=== PATIENT | female | born 1935 | race Caucasian/White ===

== ENCOUNTER 2017-07-23 18:40 | Inpatient (IN) | payer MEDICAID, MEDICARE, OTHER ==
[~2017-07-23] VITALS: Ht 162.6 cm; Wt 147.0 kg
[2017-07-23 19:26] LABS: Basophils # (auto) 0.1 uL; Eosinophils # (auto) 0.1 uL; Eosinophils % (auto) 1.4 % (0.0-7.0); Hematocrit 41.3 % (36.0-46.0); Hemoglobin 13.7 g/dL (12.2-16.2); Lymphocytes # (auto) 1.3 uL; Lymphocytes % (auto) 14.6 % (10.0-50.0); Mean Corpuscular Hemoglobin 32.4 pg (28.0-32.0); Mean Corpuscular Hgb Conc. 33.2 g/dL (32.0-36.0); Mean Corpuscular Volume 97.6 fL (80.0-100.0); Monocytes # (auto) 0.6 uL; Monocytes % (auto) 6.3 % (0.0-12.0); Neutrophils % (auto) 76.7 % (37.0-80.0); Platelet Count (auto) 421 10^3/uL (140-450); Red Blood Cells 4.23 10^6/uL (4.0-5.20); Red Cell Distribution Width 14.8 % (11.8-14.3); White Blood Cell 9.2 10^3/uL (4.4-10.8)
[2017-07-23 19:43] LABS: Alanine Aminotransferase 19 U/L (13-56); Albumin 3.9 g/dL (3.4-5.0); Anion Gap 9 (5-15); Blood Urea Nitrogen 10 mg/dL (7-18); Carbon Dioxide 26 mmol/L (21-32); Chloride 98 mmol/L (98-107); Glucose 144 mg/dL (74-106); Magnesium 2.2 mg/dL (1.6-2.6); Potassium 3.4 mmol/L (3.5-5.1); Sodium 133 mmol/L (136-145)
[2017-07-23 19:45] LABS: Aspartate Aminotransferase 22 U/L (15-37); BUN/Creatinine Ratio 13.5; Calcium 8.5 mg/dL (8.5-10.1); GFR African American 97 mL/min; GFR Non-African American 80 mL/min
[2017-07-23 19:51] LABS: Alkaline Phosphatase 89 U/L (45-117); Bilirubin, Total 0.7 mg/dL (0.2-1.0); Total Protein 8.7 g/dL (6.4-8.2)
[2017-07-23] MEDS ORDERED: MORPHINE SULFATE 4 MG/ML SYR/VIAL IV ONE (22:30)
[2017-07-23] MEDS ORDERED: SODIUM CHLORIDE 0.9% 1,000 ML IV ONE (22:30)
[2017-07-23] MEDS ORDERED: ONDANSETRON HCL 4 MG/2 ML VIAL IV ONE (22:30)
[2017-07-23 22:44] LABS: INR 1.06 (0.9-1.15); Partial Thromboplastin Time 27.3 sec (22.64-33.71); Prothrombin Time 11.6 sec (9.37-12.3)
[2017-07-23 22:45] LABS: Albumin 3.8 g/dL (3.4-5.0); BUN/Creatinine Ratio 17.5; Bilirubin, Total 0.8 mg/dL (0.2-1.0); Calcium 8.7 mg/dL (8.5-10.1); Potassium 3.4 mmol/L (3.5-5.1); Total Protein 8.6 g/dL (6.4-8.2)
[2017-07-24] MEDS ORDERED: ACETAMINOPHEN 325 MG TAB PO ONE (01:45)
[2017-07-24] MEDS ORDERED: TEMAZEPAM 15 MG CAP PO PRN (06:30)
[2017-07-24] MEDS ORDERED: HYDROcodone-ACET 5/325MG TAB PO PRN (06:30)
[2017-07-24] MEDS ORDERED: ACETAMINOPHEN 325 MG TAB PO PRN (06:30)
[2017-07-24] MEDS ORDERED: DOCUSATE SOD 100 MG CAP PO PRN (06:30)
[2017-07-24] MEDS ORDERED: ONDANSETRON HCL 4 MG/2 ML VIAL IV PRN (06:30)
[2017-07-24] MEDS ORDERED: MORPHINE SULFATE 4 MG/ML SYR/VIAL IV PRN (06:30)
[2017-07-24] MEDS ORDERED: ALBUTEROL SULF 2.5 MG/0.5ML(0.5%) NEB SOLN NEB PRN (06:30)
[2017-07-24] MEDS ORDERED: NITROGLYCERIN 0.4 MG SL TAB SL PRN (06:30)
[2017-07-24] MEDS ORDERED: ATORVASTATIN 20 MG TAB PO ONE (06:45)
[2017-07-24] MEDS ORDERED: LEVOTHYROXINE SODIUM 50 MCG TAB PO SCH (07:00)
[2017-07-24 08:46] VITALS: BP 137/68
[2017-07-24] MEDS ORDERED: cefTRIAXone 1GM/10ml IVPUSH 10 ML IV SCH (09:00)
[2017-07-24 09:06] VITALS: BP 137/68
[2017-07-24] MEDS ORDERED: LEVO150T10 PO (09:27)
[2017-07-24 09:59] LABS: Cholesterol 131 mg/dL (< 200); HDL Cholesterol 59 mg/dL (40-59); LDL Cholesterol 69 mg/dL (< 100); Triglycerides 45 mg/dL (< 150)
[2017-07-24] MEDS ORDERED: ASPirin 81 mg TAB PO SCH (10:00)
[2017-07-24] MEDS ORDERED: FAMOTIDINE 20 MG TAB PO SCH (10:00)
[2017-07-24] MEDS ORDERED: ENOXAPARIN SOD 40 MG/0.4 ML SYRINGE SC SCH (10:00)
[2017-07-24 11:52] VITALS: BP 121/68
[2017-07-24 17:21] LABS: Urine Bacteria FEW /hpf (None Seen); Urine Blood Negative /uL (Negative); Urine Mucus FEW (None Seen); Urine Specific Gravity 1.024 (1.001-1.035); Urine WBC 13 /hpf (0 - 5)
[2017-07-25] MEDS ORDERED: ATORVASTATIN 20 MG TAB PO SCH (22:00)
== END 2017-07-24 17:15 | disposition home or self-care (01) | DRG 191 ==
LOC: EDBD 18:40 → ER 18:46 → TELE 18:47 → TELE-CENTR 07-24 07:53
PROVIDERS: ADMIT Nurse Practitioner; ATTEND Nurse Practitioner
DX: J44.1 Chronic obstructive pulmonary disease with (acute) exacerbation (principal); Z68.43 Body mass index [BMI] 50.0-59.9, adult; E03.9 Hypothyroidism, unspecified; R07.89 Other chest pain; G47.00 Insomnia, unspecified; K59.00 Constipation, unspecified; I10 Essential (primary) hypertension; Z79.82 Long term (current) use of aspirin; Z86.73 Personal history of transient ischemic attack (TIA), and cerebral infarction without residual deficits; E66.3 Overweight
CPT/HCPCS: 36415; 71046; 80053; 80061; 81001; 83735; 84443; 84484; 85025; 85379; 85610; 85730; 87040; 93005; 93306; 94761; 96361; 96374; 96375; J2405

== ENCOUNTER 2019-11-11 00:07 | Inpatient (IN) | payer OTHER ==
[~2019-11-11] VITALS: Ht 162.6 cm; Wt 62.8 kg
[~2019-11-11 00:07] MED LIST: LEVO150T10 PO
[2019-11-11 01:20] LABS: Basophils # (auto) 0.1 10 ^3/uL (0-0.2); Basophils % (auto) 1.6 % (0.0-2.0); Eosinophils # (auto) 0.3 10 ^3/uL (0-0.8); Eosinophils % (auto) 6.2 % (0.0-7.0); Hematocrit 42.2 % (36.0-46.0); Hemoglobin 14.2 g/dL (12.2-16.2); Lymphocytes # (auto) 1.3 10 ^3/uL (0.4-5.4); Lymphocytes % (auto) 25.3 % (10.0-50.0); Mean Corpuscular Hemoglobin 33.5 pg (28.0-32.0); Mean Corpuscular Hgb Conc. 33.7 g/dL (32.0-36.0); Mean Corpuscular Volume 99.4 fL (80.0-100.0); Monocytes # (auto) 0.5 10 ^3/uL (0-1.3); Monocytes % (auto) 10.7 % (0.0-12.0); Neutrophils # (auto) 2.8 10 ^3/uL (1.6-8.6); Neutrophils % (auto) 56.2 % (37.0-80.0); Nucleated Red Blood Cells % 0.1 %; Platelet Count (auto) 406 10^3/uL (140-450); Red Blood Cells 4.24 10^6/uL (4.0-5.20); Red Cell Distribution Width 14.7 % (11.8-14.3)
[2019-11-11 01:32] LABS: Albumin 3.9 g/dL (3.4-5.0); Anion Gap 6 (5-15); Blood Urea Nitrogen 19 mg/dL (7-18); Calcium 8.9 mg/dL (8.5-10.1); Carbon Dioxide 28 mmol/L (21-32); Chloride 101 mmol/L (98-107); Glucose 113 mg/dL (74-106); Potassium 3.7 mmol/L (3.5-5.1); Sodium 135 mmol/L (136-145)
[2019-11-11 01:34] LABS: Alanine Aminotransferase 18 U/L (13-56); Aspartate Aminotransferase 23 U/L (15-37); BUN/Creatinine Ratio 22.9; GFR African American 85 mL/min; GFR Non-African American 70 mL/min
[2019-11-11 01:38] LABS: Urine Bacteria NONE SEEN /hpf (None Seen); Urine Blood Negative /uL (Negative); Urine Hyaline Cast FEW /lpf (0 - 2); Urine Specific Gravity 1.009 (1.001-1.035); Urine WBC 22 /hpf (0 - 5)
[2019-11-11 01:39] LABS: Alkaline Phosphatase 77 U/L (45-117); Bilirubin, Total 0.6 mg/dL (0.2-1.0); Total Protein 8.8 g/dL (6.4-8.2)
[2019-11-11] MEDS ORDERED: SODIUM CHLORIDE 0.9% 1,000 ML IV SCH (05:29)
[2019-11-11] MEDS ORDERED: DOCUSATE SOD 100 MG CAP PO PRN (05:30)
[2019-11-11] MEDS ORDERED: HYDROcodone-ACET 5/325MG TAB PO PRN (05:30)
[2019-11-11] MEDS ORDERED: ONDANSETRON HCL 4 MG/2 ML VIAL IV PRN (05:30)
[2019-11-11] MEDS ORDERED: ACETAMINOPHEN 325 MG TAB PO PRN (05:30)
[2019-11-11] MEDS ORDERED: MORPHINE SULF INJ 2 MG/ML SYRINGE 1ML IV PRN (05:30)
[2019-11-11] MEDS ORDERED: SODIUM CHLORIDE 0.9% 1,000 ML IV ONE (05:30)
[2019-11-11 06:30] LABS: Basophils # (auto) 0 10 ^3/uL (0-0.2); Basophils % (auto) 1.1 % (0.0-2.0); Eosinophils # (auto) 0.2 10 ^3/uL (0-0.8); Eosinophils % (auto) 3.8 % (0.0-7.0); Hematocrit 40.1 % (36.0-46.0); Hemoglobin 13.5 g/dL (12.2-16.2); Lymphocytes # (auto) 1.1 10 ^3/uL (0.4-5.4); Lymphocytes % (auto) 25.1 % (10.0-50.0); Mean Corpuscular Hemoglobin 33.5 pg (28.0-32.0); Mean Corpuscular Hgb Conc. 33.6 g/dL (32.0-36.0); Mean Corpuscular Volume 99.8 fL (80.0-100.0); Monocytes # (auto) 0.5 10 ^3/uL (0-1.3); Monocytes % (auto) 11.6 % (0.0-12.0); Neutrophils # (auto) 2.5 10 ^3/uL (1.6-8.6); Neutrophils % (auto) 58.4 % (37.0-80.0); Nucleated Red Blood Cells % 0.1 %; Platelet Count (auto) 337 10^3/uL (140-450); Red Blood Cells 4.02 10^6/uL (4.0-5.20); Red Cell Distribution Width 14.4 % (11.8-14.3); White Blood Cell 4.3 10^3/uL (4.4-10.8)
[2019-11-11 06:45] LABS: BUN/Creatinine Ratio 21.8; Calcium 8.7 mg/dL (8.5-10.1); Potassium 4.1 mmol/L (3.5-5.1)
[2019-11-11] MEDS ORDERED: LEVO100T8 PO (09:44)
[2019-11-11] MEDS ORDERED: LISI10TA6 PO (09:44)
[2019-11-11] MEDS: cefTRIAXone 1GM/50ML D5W 50 ML IV SCH (10:13)
[2019-11-11] MEDS ORDERED: LORazepam 2MG/ML-1ML VIAL IV PRN (14:00)
[2019-11-11] MEDS ORDERED: CLOPIDOGREL BISULFATE 75 MG TAB PO ONE (14:00)
[2019-11-11 14:42] LABS: Cholesterol 168 mg/dL (< 200); HDL Cholesterol 56 mg/dL (40-59); LDL Cholesterol 98 mg/dL (< 100); Triglycerides 55 mg/dL (< 150)
--- NOTE | 2019-11-11 16:19 | NUR ---
PT eval orders received. Will evaluate pt once she is up on the floor.
[2019-11-11] MEDS: SODIUM CHLORIDE 0.9% 1,000 ML IV SCH (20:13)
[2019-11-11] MEDS: ATORVASTATIN 20 MG TAB PO SCH (21:41)
[2019-11-12 07:00] LABS: Basophils # (auto) 0.1 10 ^3/uL (0-0.2); Eosinophils # (auto) 0.3 10 ^3/uL (0-0.8); Eosinophils % (auto) 6.3 % (0.0-7.0); Hematocrit 41.5 % (36.0-46.0); Hemoglobin 13.9 g/dL (12.2-16.2); Lymphocytes # (auto) 1.5 10 ^3/uL (0.4-5.4); Lymphocytes % (auto) 30.9 % (10.0-50.0); Mean Corpuscular Hemoglobin 33.3 pg (28.0-32.0); Mean Corpuscular Hgb Conc. 33.4 g/dL (32.0-36.0); Mean Corpuscular Volume 99.6 fL (80.0-100.0); Monocytes # (auto) 0.6 10 ^3/uL (0-1.3); Neutrophils # (auto) 2.4 10 ^3/uL (1.6-8.6); Neutrophils % (auto) 48.8 % (37.0-80.0); Platelet Count (auto) 362 10^3/uL (140-450); Red Blood Cells 4.16 10^6/uL (4.0-5.20); Red Cell Distribution Width 14.3 % (11.8-14.3); White Blood Cell 4.8 10^3/uL (4.4-10.8)
[2019-11-12 07:16] LABS: Magnesium 2.4 mg/dL (1.6-2.6); Potassium 4.2 mmol/L (3.5-5.1)
[2019-11-12 07:24] LABS: Albumin 3.5 g/dL (3.4-5.0); BUN/Creatinine Ratio 22.7; Bilirubin, Total 0.5 mg/dL (0.2-1.0); Calcium 8.7 mg/dL (8.5-10.1); Total Protein 7.9 g/dL (6.4-8.2)
[2019-11-12] MEDS: cefTRIAXone 1GM/50ML D5W 50 ML IV SCH (09:18)
[2019-11-12] MEDS: SODIUM CHLORIDE 0.9% 1,000 ML IV SCH (11:30)
--- NOTE | 2019-11-12 11:30 | NUR ---
Telemetry admit from ER SUPRIYA MCCLELLAN admitted to Telemetry unit after SBAR received. Patient oriented to Lilian Gallegos primary RN, unit, room, bed, and unit policies regarding patient care and visiting hours. Patient now on continuous telemetry monitoring, tele box # 20 and telemetry reading on arrival to unit is SR67. Patient placed on bedside oxygen, weighed by bedscale and encouraged to call if they need something. All questions and concerns addressed, patient verbalized understanding.
[2019-11-12 13:00] VITALS: BP 159/95
--- NOTE | 2019-11-12 14:15 | NUR ---
Attempted PT eval. Pt states she would like to hold until tomorrow because she is tired from going to the bathroom. Will attempt again.
--- NOTE | 2019-11-12 15:53 | NUR ---
SPOKE WITH MD SPOKE WITH DR COOPER, STATES HE ENTERED A DC ORDER PENDING EEG COMPLETION, CALLED AND SPOKE WITH [employer], STATES SHE HAS 7 MORE PENDING AND SHE WILL CALL DR BOWIE TO ASK IF SHE CAN DO HER TOMORROW, SHE IS INFORMED THAT PT IS PENDING COMPLETION OF TEST FOR DISCHARGE, SHE SPOKE WITH DR BOWIE AND STATES EXAM CAN BE DONE TOMORROW, CONT CARE WILL UPDATE DR COOPER
[2019-11-12 16:47] VITALS: BP 138/94
[2019-11-12 22:00] VITALS: BP 118/74
[2019-11-12] MEDS: ATORVASTATIN 20 MG TAB PO SCH (22:24)
--- NOTE | 2019-11-13 02:25 | NUR ---
2100.11/12/2019. PATIENT SEEN BY BY NEUROLOGIST DR ESCOTO. PATIENT WAS ASSESSED BY MD. WAS ALERT AND ORIENTED X 4.
[2019-11-13] MEDS: SODIUM CHLORIDE 0.9% 1,000 ML IV SCH (04:10)
[2019-11-13 05:00] VITALS: BP 156/88
--- NOTE | 2019-11-13 09:06 | NUR ---
ELECTROENCEPHALOGRAM EEG COMPLETED AT BEDSIDE. PRIMARY RN JAREK CHAVIRA.
[2019-11-13] MEDS: cefTRIAXone 1GM/50ML D5W 50 ML IV SCH (09:42)
--- NOTE | 2019-11-13 10:57 | NUR ---
Patient up to walk with PT, walks with steady and smoothe gate.
[2019-11-13 12:43] VITALS: BP 132/91
[2019-11-13 13:20] VITALS: BP 132/91
--- NOTE | 2019-11-13 13:57 | NUR ---
Patient IV DCd and tele monitor returned to tele. Patient give discharge instructions and verbalized understanding. Patient has a ride on the way.
--- NOTE | 2019-11-13 14:59 | NUR ---
Patient taken down in wheelchair to family, patient taken by JERONIMO
== END 2019-11-13 15:00 | disposition home or self-care (01) | DRG 312 ==
LOC: EDUNIT# 00:07 → EDBD 00:07 → ER 00:11 → TELE 00:12 → TELE-CENTR 11-12 11:47
PROVIDERS: ADMIT Hospitalist; ATTEND Internal Medicine Geriatric Medicine
DX: R55 Syncope and collapse (principal); N39.0 Urinary tract infection, site not specified; I10 Essential (primary) hypertension; E86.0 Dehydration; E03.9 Hypothyroidism, unspecified; W19.XXXA Unspecified fall, initial encounter; M10.9 Gout, unspecified; Y92.009 Unspecified place in unspecified non-institutional (private) residence as the place of occurrence of the external cause; Z79.02 Long term (current) use of antithrombotics/antiplatelets; Z79.899 Other long term (current) drug therapy; Z80.0 Family history of malignant neoplasm of digestive organs; Z83.3 Family history of diabetes mellitus; Z86.73 Personal history of transient ischemic attack (TIA), and cerebral infarction without residual deficits
CPT/HCPCS: 36415; 70450; 70551; 72125; 80048; 80053; 80061; 81001; 83735; 84484; 85025; 85379; 93005; 93306; 93886; 95819; 96360; 97163; G0378; J0696